=== PATIENT | female | born 1965 | race Caucasian/White ===

== ENCOUNTER 2017-02-06 06:39 | Day surgery (SDC) | payer OTHER ==
[~2017-02-06] VITALS: Ht 165.1 cm; Wt 60.9 kg
[2017-02-06] VITALS (8 sets, daily range): BP systolic 96–120; BP diastolic 64–86; PULSE 70–80; RESP 18–20; TEMP 97.7–98.2; O2SAT 93–97
[~2017-02-06 06:39] MED LIST: ALPR-138 PO
[2017-02-06] MEDS ORDERED: SODIUM CHLORIDE 0.9% 1000 ML IV SCH (07:00)
[2017-02-06] MEDS ORDERED: CHLORHEXIDINE GLUCONATE 2 % 1 PACK (2 CLOTHS) TOPICAL SCH (07:30)
[2017-02-06] MEDS ORDERED: POVIDONE IODINE 5% (ANTISEPSIS KIT) 4 APPLICATIONS EACH NARE SCH (07:30)
[2017-02-06] MEDS ORDERED: VANCOMYCIN 1000 MG/NS 250 ML - implanted port/tunneled catheter IV SCH ×2 (07:30)
[2017-02-06] MEDS ORDERED: ceFAZolin 2 GM PREMIX 50 ML - implanted port/tunneled catheter insertion IV SCH (07:30)
[2017-02-06] MEDS ORDERED: HYDR-3533 PO (08:01)
[2017-02-06] MEDS ORDERED: ALPR.25 PO (08:01)
[2017-02-06 08:04] LABS: AUTOMATED NEUTROPHIL # 3.8 TH/MM3 (1.8-7.7); BASOPHIL % 0.5 % (0.0-2.0); EOSINOPHIL # 0.1 TH/MM3 (0-0.4); EOSINOPHIL % 1.7 % (0.0-4.0); HEMATOCRIT 41.5 % (35.0-46.0); HEMO FLAGS DIFF FINAL; LYMPH % 25.6 % (9.0-44.0); LYMPHOCYTE # 1.6 TH/MM3 (1.0-4.8); MEAN CORPUSCULAR HEMOGLOBIN 35.1 PG (27.0-34.0); MEAN CORPUSCULAR HGB CONC 33.7 % (32.0-36.0); MONO % 11.2 % (0.0-8.0); PLATELET COUNT 167 TH/MM3 (150-450); RED BLOOD COUNT 3.99 MIL/MM3 (4.00-5.30); RED CELL DISTRIBUTION WIDTH 12.6 % (11.6-17.2); WHITE BLOOD COUNT 6.2 TH/MM3 (4.0-11.0)
[2017-02-06 08:11] LABS: APTT (PATIENT) 27.3 SEC (24.3-30.1); INTERNATIONAL NORMALIZED RATIO 0.9 RATIO; PROTHROMBIN TIME - PATIENT 10.3 SEC (9.8-11.6)
[2017-02-06] MEDS ORDERED: MIDAZOLAM HCL 2 MG/2 ML VIAL ONE ×2 (08:45)
[2017-02-06] MEDS ORDERED: fentaNYL CITRATE 250 MCG/5 ML AMP ONE (08:45)
[2017-02-06] MEDS ORDERED: LIDOCAINE 1%/EPINEPHrine 1:200,000 PF SOLN 30 ML VIAL ONE (08:53)
--- NOTE | 2017-02-06 09:42 | PD.RAD ---
Post Procedure Progress Note Pre Procedure Diagnosis: (1) Breast cancer in female Post Procedure Diagnosis: (1) Breast cancer in female Procedure Date: Feb 06, 2017 Supervising Radiologist: Tristen Felder Proceduralist/Assist: Abimael Godoy, RT(R), Rafiq Gomez RT(R)() Anesthesia: Local, Analgesia, Conscious Sedation Plan of Activity Patient to Unit: ROPU Patient Condition: Good See PACS Report for procedural detail/treatment Central Venous Access Device Procedure 1 Right Internal Jugular Infusaport Placement single lumen [place]ian: 8 Tristen Felder MD Feb 06, 2017 09:42
[2017-02-06] MEDS ORDERED: SODIUM CHLORIDE 0.9% FLUSH 10 ML FLUSH IVF PRN (09:45)
--- NOTE | 2017-02-11 10:44 | RADRPT ---
EXAM DATE/TIME: 02/06/2017 08:37 [facility] COMPARISON: No previous studies available for comparison. INDICATIONS : Patient with history of right breast cancer in need of port placement. MEDICAL HISTORY : 1.Right breast cancer 2.HTN 3.DVT 4.Anemia 5.PE 6.AAA SURGICAL HISTORY : 1.Cervix surgery ENCOUNTER: Initial ACUITY: 1 week PAIN SCORE: 0/10 FLUORO TIME: 0.3 minutes IMAGE SERIES: 1 SEDATION TIME: 25 minutes ACCESS: Right internal jugular vein SEDATION: 1.) 4 mg midazolam (Versed) IV 2.) 250 mcg fentanyl (Sublimaze) IV Prophylactic antibiotics were administered with appropriate pre-procedure timing. Vancomycin within 2 hours of procedure, Ancef (or alternative) within 1 hour of procedure. DEVICE: 1. 8 Kenyan single lumen Angiodynamics smart power port PROCEDURE : 1. Continuous pulse oximetry and EKG monitoring. 2. Intravenous conscious sedation. 3. Ultrasound guidance for venous access. 4. Fluoroscopic guided implantable central venous port placement. The patient was placed supine. The neck was prepped in sterile fashion. Full sterile technique was u sed, including cap, mask, sterile gloves and gown, and a large sterile sheet. Hand hygiene and 2% ch lorhexidine Betadine was utilized per protocol for cutaneous antisepsis with appropriate dry time for site. The skin and subcutaneous tissues were infiltrated with local anesthetic solution. Sterile g el and sterile probe cover were utilized for ultrasound guidance. Under direct ultrasound guidance, central venous access was accomplished in the targeted vessel. The ultrasound images depicting access guidance were stored and saved to PACS for permanent record. A s ubcutaneous pocket was created using blunt dissection. The port was introduced to the pocket. The c atheter tubing was fed through a subcutaneous tunnel to the venotomy site. The catheter tubing was c ut to a suitable length and then was introduced through a valved Peel-Away sheath and positioned with catheter tubing tip at the cavo-atrial junction level. The pocket incision was closed with subcutic ular Vicryl suture. Steri-Strips were applied. The port was flushed and locked with heparin solutio n per protocol. Sterile dressing was applied to the site. The patient tolerated the procedure well. Conscious sedation was performed with the prescribed dosages and duration as above in the presence of an independent trained radiology nurse to assist in the monitoring of the patient. EKG and oximetry remained stable throughout the procedure. The patient tolerated the procedure well and there were no complications. The patient was sent to post anesthesia recovery in stable condition. CONCLUSION: Uncomplicated ultrasound and fluoroscopic guided implanted central venous port catheter placement as described in detail above. An 8 Kenyan Power port was placed. Tristen Felder MD on February 11, 2017 at 10:40 Board Certified Radiologist. This report was verified electronically.
== END 2017-02-06 12:00 | disposition home or self-care (01) ==
LOC: HROP 06:39 → HRIP 06:40 → HROP 12:00
PROVIDERS: ATTEND Surgery
DX: Z45.2 Encounter for adjustment and management of vascular access device (principal); C50.911 Malignant neoplasm of unspecified site of right female breast; I10 Essential (primary) hypertension
CPT/HCPCS: 36561; 76937; 77001; 85025; 85610; 85730; 99152; 99153; C1788; J0690; J1642; J2250; J3010; J3370; J7030; J7050

== ENCOUNTER 2017-05-14 10:36 | Emergency (ER) | payer OTHER ==
[~2017-05-14] VITALS: Ht 165.1 cm; Wt 58.0 kg
[~2017-05-14 10:36] MED LIST changes: -ALPR-138 PO; +ALPR.25 PO; +HYDR-3533 PO
[2017-05-14 10:48] VITALS: BP 140/69; PULSE 110; RESP 18; TEMP 98.9; O2SAT 100
[2017-05-14] MEDS ORDERED: FLUC100T2 PO (11:04)
[2017-05-14] MEDS ORDERED: DEXA4TAB PO (11:04)
[2017-05-14] MEDS ORDERED: ONDA8TAB7 PO (11:04)
[2017-05-14] MEDS ORDERED: PROC10TA PO (11:04)
--- NOTE | 2017-05-14 11:04 | PD ---
HPI . Swollen leg Chief Complaint: Edema Time Seen by Provider: 10:53 Travel History International Travel<30 days: No Contact w/Intl Traveler<30days: No Traveled to known affect area: No History of Present Illness HPI Patient presents with a one-week history of a swollen right lower extremity. The swelling and pain are getting progressively worse. She describes the pain as feeling like her muscle is ripping. She rates the pain 8/10. She denies any associated chest pain or shortness of breath. This patient has had a previous postoperative VTE treated with Coumadin for 6 months. This patient is also currently being treated for right breast cancer. PFSH Past Medical History Blood Disorders: No Anxiety: Yes Cancer: Yes (breast) Cardiovascular Problems: No Chemotherapy: Yes (breast cancer) Diabetes: No Diminished Hearing: No Endocrine: No Genitourinary: No Hepatitis: No Hiatal Hernia: No Immune Disorder: No Implanted Vascular Access Dvce: Yes Musculoskeletal: No Neurologic: No Psychiatric: Yes (anxiety) Reproductive: No Respiratory: No Immunizations Current: Yes Thyroid Disease: No Tetanus Vaccination: Unknown Influenza Vaccination: No ?: Not Past Surgical History Abdominal Surgery: No AICD: No Cardiac Surgery: No Ear Surgery: No Endocrine Surgery: No Eye Surgery: No Genitourinary Surgery: No Gynecologic Surgery: No Hysterectomy: Yes Joint Replacement: No Oral Surgery: No Pacemaker: No Thoracic Surgery: No Other Surgery: Yes (hysterectomy 07-29-05) Social History Alcohol Use: No Tobacco Use: No Substance Use: No Allergies-Medications (Allergen,Severity, Reaction): Coded Allergies: No Known Allergies (Verified , 02/06/17) Reported Meds & Prescriptions Reported Meds & Active Scripts Active Reported Fluconazole 100 Mg Tab 100 Mg PO DAILY Ondansetron (Ondansetron HCl) 8 Mg Tab 8 Mg PO TID Dexamethasone 4 Mg Tab 4 Mg PO DIRECTED Prochlorperazine Maleate 10 Mg Tab 10 Mg PO Q4H PRN Xanax (Alprazolam) 0.25 Mg Tab 0.25 Mg PO Q6H PRN Review of Systems Except as stated in HPI: all other systems reviewed are Neg Cardiovascular: No: Chest Pain or Discomfort Respiratory: No: Shortness of Breath Musculoskeletal: Positive: Arthralgias, Edema Physical Exam Narrative GENERAL: Awake and alert and in no acute distress. SKIN: Warm and dry. HEAD: Normocephalic/atraumatic. EYES: Pupils are equal. Extraocular movements are intact. NECK: Normal range of motion. CARDIOVASCULAR: Regular rate and rhythm. RESPIRATORY: Nonlabored respirations. MUSCULOSKELETAL: Right lower leg is visibly swollen. There is some pitting. NEUROLOGICAL: Nonfocal. PSYCHIATRIC: Appropriate mood and affect. Data Data Last Documented VS Vital Signs Date Time Temp Pulse Resp B/P (MAP) Pulse Ox O2 Delivery O2 Flow Rate FiO2 05/14/17 12:47 99 108/71 (83) 96 05/14/17 10:48 98.9 18 Orders Orders Us Leg Venous Doppler (05/14/17 10:48) Morphine Inj (Morphine Inj) (05/14/17 11:30) Ondansetron Inj (Zofran Inj) (05/14/17 11:30) MDM Medical Decision Making Medical Screen Exam Complete: Yes Emergency Medical Condition: Yes Differential Diagnosis Differential diagnosis of leg pain includes but is not limited to lumbar radiculopathy, arthritis, myalgias, DVT, ruptured Chávez cyst. Narrative Course This is a cancer patient who has had a previous VTE who presents to us with a swollen right lower extremity. Ultrasound is pending. I have offered pain medication. The patient is currently declining. The patient did later request some pain medication. She was given morphine. Last Impressions Lower Extremity Ultrasound 05/14/17 1048 Signed Impressions: Service Date/Time: April 11:34 - CONCLUSION: Deep venous thrombosis. Dayday Lomas MD She has no worrisome signs or symptoms such as chest pain, shortness of breath, massive edema or discoloration. She will be treated outpatient with his Xarelto. Diagnosis Primary Impression: DVT (deep venous thrombosis) Qualified Codes: I82.4Y1 - Acute embolism and thrombosis of unspecified deep veins of right proximal lower extremity Patient Instructions: Deep Venous Thrombosis (DC) Additional Instructions: Follow-up with your oncologist within the next 3 weeks for continued treatment of the DVT. Return here if you develop chest pain or shortness of breath. Med/Other Pt SpecificInfo: Prescription(s) given Scripts Rivaroxaban (Xarelto) 15 Mg Tab 15 MG PO Q12HR for Blood Clot Prevention for 21 Days, TAB 0 Refills Prov: Domi Lopez MD 05/14/17 Disposition: 01 DISCHARGE HOME Condition: Stable Domi Lopez MD May 14, 2017 11:04
[2017-05-14] MEDS ORDERED: MORPHINE SULFATE 4 MG/ML INJ IV ONE (11:30)
[2017-05-14] MEDS ORDERED: ONDANSETRON HCL 4 MG/2 ML VIAL IV PUSH ONE (11:30)
--- NOTE | 2017-05-14 11:56 | RADRPT ---
EXAM DATE/TIME: 05/14/2017 11:34 [facility] COMPARISON: No previous studies available for comparison. INDICATIONS : Right leg swelling and pain. MEDICAL HISTORY : Breast cancer. Fibroids. SURGICAL HISTORY : Hysterectomy. ENCOUNTER: Initial ACUITY: 1 week PAIN SCORE: 8/10 LOCATION: Right leg. TECHNIQUE: Venous ultrasound of the leg was performed from the inguinal ligament to the proximal calf. Real-adriana e, color Doppler and spectral tracing, compression and augmentation techniques were used. FINDINGS: There is occlusive thrombus in the superficial femoral vein, popliteal vein and peroneal veins which are noncompressible and demonstrate no areas wave form augmentation response. The common femoral vein and greater saphenous veins are patent. CONCLUSION: Deep venous thrombosis. Dayday Lomas MD on May 14, 2017 at 11:53 Board Certified Radiologist. This report was verified electronically.
[2017-05-14 12:47] VITALS: BP 108/71; PULSE 99; O2SAT 96
[2017-05-14] MEDS ORDERED: XARE15TA PO (12:58)
== END 2017-05-14 13:22 | disposition home or self-care (01) ==
LOC: PHED 10:36
DX: I82.401 Acute embolism and thrombosis of unspecified deep veins of right lower extremity (principal); C50.911 Malignant neoplasm of unspecified site of right female breast; F41.9 Anxiety disorder, unspecified; Z79.899 Other long term (current) drug therapy
CPT/HCPCS: 93971; 96374; 96375; 99285; J1642; J2270; J2405

== ENCOUNTER → 2017-09-29 | Outpatient (CLI) | payer OTHER ==
[~2017-09-29] MED LIST changes: +DEXA4TAB PO; +FLUC100T2 PO; -HYDR-3533 PO; +ONDA8TAB7 PO; +PROC10TA PO; +XARE15TA PO
--- NOTE | 2017-09-30 23:22 | EKG ---
Date Performed: 09/29/2017 Time Performed: 08:46:46 PTAGE: 51 years EKG: Sinus rhythm Short GA interval Possible left anterior fascicular block ST junctional depression is nonspecific Kyle rderline ECG PREVIOUS TRACING : 07/31/2005 20.59 Since the previous tracing, no significant change noted DOCTOR: Maximus Briceno Interpretating Date/Time 09/30/2017 23:20:34
== END ==
LOC: HCAV 08:30
PROVIDERS: ATTEND Surgery
DX: C50.911 Malignant neoplasm of unspecified site of right female breast (principal); R94.31 Abnormal electrocardiogram [ECG] [EKG]
CPT/HCPCS: 93005

== ENCOUNTER → 2017-09-29 | Outpatient (CLI) | payer OTHER ==
[2017-09-29 09:36] LABS: AUTOMATED NEUTROPHIL # 4.7 TH/MM3 (1.8-7.7); BASOPHIL % 0.3 % (0.0-2.0); EOSINOPHIL # 0.1 TH/MM3 (0-0.4); EOSINOPHIL % 1.6 % (0.0-4.0); HEMATOCRIT 40.6 % (35.0-46.0); HEMOGLOBIN 13.9 GM/DL (11.6-15.3); LYMPH % 11.7 % (9.0-44.0); LYMPHOCYTE # 0.7 TH/MM3 (1.0-4.8); MEAN CELL VOLUME 101.2 FL (80.0-100.0); MEAN CORPUSCULAR HEMOGLOBIN 34.6 PG (27.0-34.0); MEAN CORPUSCULAR HGB CONC 34.2 % (32.0-36.0); MONO % 10.1 % (0.0-8.0); MONOCYTE # 0.6 TH/MM3 (0-0.9); NEUT % 76.3 % (16.0-70.0); PLATELET COUNT 183 TH/MM3 (150-450); RED BLOOD COUNT 4.01 MIL/MM3 (4.00-5.30); RED CELL DISTRIBUTION WIDTH 14.9 % (11.6-17.2); WHITE BLOOD COUNT 6.1 TH/MM3 (4.0-11.0)
== END ==
LOC: CLAB 08:59
PROVIDERS: ATTEND Surgery
DX: C50.911 Malignant neoplasm of unspecified site of right female breast (principal)
CPT/HCPCS: 36415; 85025

== ENCOUNTER → 2017-10-07 | Day surgery (SDC) | payer OTHER ==
[~2017-10-07] MED LIST changes: +BUPIVACAINE HCL PF 0.5% 10 ML VIAL ONE; +ISOSULFAN BLUE 50 MG/5 ML VIAL SQ ONE; +KETOROLAC TROMETHAMINE 30 MG/ML (IVP) VIAL IV PUSH ONE; +LACTATED RINGER'S 1000 ML INJ 1,000 ML ONE; +MEPERIDINE HCL 25 MG/ML VIAL ONE; +MEPERIDINE HCL 50 MG/ML VIAL ONE; +MIDAZOLAM HCL 2 MG/2 ML VIAL ONE; +ONDANSETRON HCL 4 MG/2 ML VIAL IV PUSH ONE; +PROPOFOL 200 MG/20 ML AMP IV ONE; +SODIUM CHLORIDE 0.9% INJ 10 ML ONE; +ceFAZolin 2 GM PREMIX 50 ML ONE; +oxyCODONE/ACETAMINOPHEN 5 MG/325 MG TAB ONE
--- NOTE | 2017-10-07 16:27 | MP ---
cc: Amira Ray MD DATE OF OPERATION: 10/07/2017 PRINCIPAL DIAGNOSIS: Locally advanced clinical stage III right breast cancer, status post neoadjuvant chemotherapy. POSTOPERATIVE DIAGNOSIS: Locally advanced clinical stage III right breast cancer, status post neoadjuvant chemotherapy with excellent clinical pathologic response. PROCEDURE PERFORMED: Right breast needle localized lumpectomy, right axillary sentinel lymph node biopsy with touch prep, and right subclavian Infusaport removal. SURGEON: Amira Ray MD ANESTHESIA: General via LMA device. INDICATION: The patient is a 52-year-old female who presented last summer with a 6 cm right breast mass involving the overlying skin. There was no clinical or imaging evidence of metastatic adenopathy and the patient subsequently completed neoadjuvant chemotherapy. The tissue remains somewhat indurated, but breast MRI post-treatment did not demonstrate suspicious enhancement. She has opted for breast conservation and now presents for the procedure. FINDINGS AT THE TIME OF SURGERY: Four sentinel lymph nodes were identified. Number 1 was suspicious and #2 was also suspicious with no radioactive count or blue dye uptake. Specimen #3 had a count of 345 and was not blue and specimen #4 had a count of 30 and was not blue. Touch prep of the lymph nodes was negative for metastatic disease. A specimen mammogram did demonstrate an intact wire and the clip and lesion were within the specimen. DESCRIPTION OF PROCEDURE: After informed consent was obtained, and site verification was performed, the patient was brought to the radiology suite where she underwent peritumoral radionuclide injection as well as needle localization of her prior mass and clip. She was then brought to the major operating room where she underwent general anesthesia via an LMA device. She was given a single dose of IV Ancef and sequential compression hose were placed. A 3 mL of half-strength Lymphazurin were injected in the subareolar right breast and a 5-minute massage was performed. The right breast and arm were then prepped and draped in sterile fashion. An incision was anesthetized at the inferior aspect of the right axillary hairline and both sharp and electrocautery dissection were performed until the clavipectoral fascia was divided and the level one axilla was entered. There were no obvious blue lymphatics, but there were some slightly enlarged lymph nodes close to the chest wall and in the axillary tail of the breast. Each of these was circumferentially dissected free from surrounding structures and the 4 nodes that were suspicious and with a count were sent as sentinel nodes for touch prep, which was negative for metastatic disease. Some adjacent axillary tissue was also sent as a permanent specimen. Good hemostasis was noted and the axillary wound was closed with interrupted 3-0 Vicryl subcutaneous sutures and a 4-0 Monocryl subcuticular suture. Attention was then turned to the right breast where the wire was identified at 8 o'clock, 5 cm from the nipple. There was some overlying skin scarring at the site of prior skin involvement. An ellipse of skin overlying the scar tissue and wire was then anesthetized with 0.5% Marcaine plain and the area was sharply excised. The specimen was oriented with the skin anterior, 1 short suture superiorly, and 1 long suture laterally. There was no obvious palpable mass within the specimen and the specimen did extend down to the tip of the wire. Hemostasis was obtained in the lumpectomy cavity using electrocautery, and the inferior flap was mobilized away from the chest wall to facilitate closure. The wound was closed using interrupted 3-0 Vicryl subcutaneous sutures and a 4-0 Monocryl subcuticular suture. Attention was then turned to the right subclavian port and the incision was also anesthetized with 0.5% Marcaine plain. The incision was sharply reopened and sharp dissection was performed around the port reservoir until it had been mobilized into the wound. The catheter was easily withdrawn for a distance of 18 cm and hemostasis was obtained with direct pressure at the subclavian site for approximately 5 minutes. Good hemostasis was noted, and the wound was closed using interrupted 3-0 Vicryl subcutaneous sutures and a 4-0 Monocryl subcuticular suture. Steri-Strips and sterile dressings were applied to all wounds. The patient tolerated the procedure well, with an estimated blood loss of 50 mL, and she was extubated in the operating room and brought to recovery room in good condition. All sponge and needle counts were correct at the conclusion of the case. MD MANSOOR George/TORITO , 04:02 PM , 04:25 PM
== END | disposition home or self-care (01) ==
LOC: ESDC 09:27
PROVIDERS: ATTEND Surgery
DX: C50.911 Malignant neoplasm of unspecified site of right female breast (principal); Z92.21 Personal history of antineoplastic chemotherapy
CPT/HCPCS: 00400; 01610; 19125; 36590; 38525; 88307; 88333; J0690; J1885; J2175; J2250; J2405; J3010; J7120; Q9968